=== PATIENT | female | born 1975 ===

== ENCOUNTER 2021-03-28 08:09 | Emergency (ER) | payer SELFPAY ==
[2021-03-28 09:28] LABS: CHLORIDE,CL 104 mmol/L (98-107); SODIUM,NA 140 mmol/L (136-145)
== END 2021-03-28 10:22 | disposition home or self-care (01) ==
LOC: DL.ED 08:09
DX: N76.4 Abscess of vulva (principal)
CPT/HCPCS: 36415; 80053; 83605; 85025; 85610; 87040; 99283; 99284